=== PATIENT | male | born 1975 | race Caucasian/White ===

== ENCOUNTER 2024-07-02 09:30 | Day surgery (SDC) | payer BC, SELFPAY ==
[2024-07-02 16:19] VITALS: BMI 29.9
[2024-07-05] VITALS (16 sets, daily range): BP systolic 130–161; BP diastolic 70–97; PULSE 62–81; RESP 16–18; TEMP 36.8; O2SAT 92–99; BMI 30.8
[2024-07-05 11:56] LABS: Basophils Percent Auto 0.6 % (0.2-1.2); Eosinophils Absolute Auto 0.1 K/mm3 (0-0.3); Eosinophils Percent Auto 2.2 % (0-4.4); Hematocrit 45.2 % (42.0-52.0); Hemoglobin 15.4 g/dL (14.0-18.0); Immature Granulocyte Absolute 0.01 K/mm3 (0.00-0.031); Immature Granulocyte Percent A 0.2 % (0-0.5); Lymphocytes Absolute Auto 1.76 K/mm3 (0.9-3.2); Lymphocytes Percent Auto 27.8 % (18.3-44.2); Mean Corpuscular HGB Conc 34.1 g/dl (32-36); Mean Corpuscular Hemoglobin 33.5 pg (26-34); Mean Corpuscular Volume 98.3 fl (80-100); Mean Platelet Volume 10.1 fl (7.4-10.4); Monocytes Absolute Auto 0.5 K/mm3 (0.1-0.6); Monocytes Percent Auto 8.5 % (2.6-8.5); Neutrophils Absolute Auto 3.8 K/mm3 (1.3-6.7); Neutrophils Percent Auto 60.7 % (45.5-73.1); Platelet Count Result 175 k/mm3 (150-375); White Blood Count 6.3 K/mm3 (4.5-10.0)
[2024-07-05 12:08] LABS: Anion Gap 5 mmol/L (4-12); Blood Urea Nitrogen 18 mg/dL (9-20); Calcium 9.3 mg/dL (8.4-10.2); Carbon Dioxide 25 mmol/L (22-30); Chloride 109 mmol/L (98-107); Estimated CRCL calculation 140 ml/min; Estimated Glomerular Filt Rate > 60; Glucose 127 mg/dL (65-110); Potassium 4.7 mmol/L (3.4-5.0); Sodium 139 mmol/L (137-145)
--- NOTE | 2024-07-05 14:15 | WPDHPUPDATE1 ---
History and Physical Update Update Date/Time: 07/05/24 14:15 History and Physical has been reviewed, including an updated exam of the patient. There are NO changes in the patient's condition. Risks, benefits, and alternatives have been discussed and questions answered. Patient agrees to proceed with procedure.
--- NOTE | 2024-07-05 14:16 | P.SEDATION_ITS ---
Moderate Sedation Note-Pt Data Patient Data Allergies Allergy/AdvReac Type Severity Reaction Status Date / Time No Known Allergies Allergy Verified 07/05/24 11:41 Home Medications Medication Instructions Recorded Confirmed Type aspirin 81 mg tablet,delayed 81 mg PO DAILY 07/02/24 07/02/24 History release evolocumab 140 mg/mL subcutaneous 140 mg subcut [id number] 07/02/24 07/02/24 History pen injector (Fletcher Koch) rosuvastatin 40 mg tablet 40 mg PO DAILY 07/02/24 07/02/24 History valsartan 160 mg tablet 160 mg PO BID 07/02/24 07/02/24 History Sedation/Anesthesia: No previous sedation/anesthesia problems (including family history). [facility] Social History Social History Smoking status: Never smoker Second hand tobacco smoke exposure: No Alcohol intake: current Drinks per week: 2 Alcohol use details: H[employer] Substance use: never Substance use type: does not use Living arrangements: with family Spiritual care concerns: No Mod Sed Physical Exam Physical Exam Pre Procedural Exam: Normal: Lungs, Heart Rate and Heart Rhythm Hours since solid foods: 12 Hours since liquid intake: 12 Mallampati Classification: class II Internal Medicine - PN: Obj Da Vital Signs Vital Signs: Vital Signs - 24 hr 07/05/24 11:43 Temperature 36.8 C Pulse Rate 75 Respiratory Rate 16 Blood Pressure 149/97 H Pulse Oximetry 99 Oxygen Delivery Room Air Labs 07/05/24 11:41 07/05/24 11:41 Labs: Laboratory Results - last 24 hr 07/05/24 11:41 WBC 6.3 RBC 4.60 Hgb 15.4 Hct 45.2 MCV 98.3 MCH 33.5 MCHC 34.1 RDW 12.0 Plt Count 175 MPV 10.1 Immature Gran % (Auto) 0.2 Neut % (Auto) 60.7 Lymph % (Auto) 27.8 [place] % (Auto) 8.5 Eos % (Auto) 2.2 Baso % (Auto) 0.6 Lymph # (Auto) 1.76 [place] # (Auto) 0.5 Eos # (Auto) 0.1 Baso # (Auto) 0.0 Abs Immat Gran (auto) 0.01 Absolute Neuts (auto) 3.8 Absolute Nucleated RBC 0.000 Nucleated RBC % 0.0 Sodium 139 Potassium 4.7 Chloride 109 H Carbon Dioxide 25 Anion Gap 5 BUN 18 Creatinine 0.70 Estim Creat Clear Calc 140 Estimated GFR > 60 Glucose 127 H Calcium 9.3 ASA Classification/Sedation ASA Classification/Sedation ASA Class: III Emergent: No Risks: Risks, benefits and alternatives explained and patient/family accepted plan for sedation. Patient re-evaluated immediately prior to sedation.
--- NOTE | 2024-07-05 14:17 | P.PCNCC_ITS ---
Cardiac Cath Procedure Note Date of procedure:: 07/05/24 Performing physician:: CATHETERIZATION LABORATORY REPORT Procedure Date: 07/05/2024 Referring Physician: Dr. Noe Anesthesia: Versed and Fentanyl were ordered and given in my presence at 1353, procedure ended at 1411. Supervision of nurse, Mikie Harris monitored moderate sedation with 2mg Versed and 100mcg Fentanyl was provided for 18 minutes. Pre-op Diagnosis: Positive stress test Post-op Diagnosis: Multivessel CAD Procedure(s): Left heart catheterization with coronary angiography Access Site: Right radial artery Brief History and Clinical Indications: All risks, benefits and alternatives to left heart catheterization with or without percutaneous coronary intervention was discussed at length with the patient. Risk of complications including but not limited to bleeding, infection, arrhythmia, stroke, worsening kidney function, blood loss, groin hematoma, limb loss, emergency coronary artery bypass grafting, and even were discussed with the patient and all questions were answered. The patient understood and wished to proceed. Time out called, patient name, date of , medical record number, allergies, procedure performed, identify Senior Copywriter, patient and staff member concurred with accurate data, procedure carried on. Findings: LEFT HEART CATHETERIZATION FINDINGS: 1. Left main: The left main coronary artery is widely patent without any significant obstructive disease. 2. Left anterior descending: The LAD gives off 4 diagonal branches. The diagonal branches of luminal irregularities. The mid LAD has 2 areas of 70-90% stenosis. 3. Left circumflex: The left circumflex artery is a large codominant vessel. There is a 90% stenosis in its proximal segment. In its distal segment there is a chronic total occlusion with bridging collaterals filling the remainder of left PDA. His 4. Right coronary artery: The RCA is a large codominant vessel. In its mid body there is a 99% stenosis. The right posterior lateral branches has luminal irregularities. The right PDA has mild 20-30% stenosis. 5. Left ventricle: A. End-diastolic pressure 21 mmHg. B. LV gram deferred. C. No significant gradient across aortic valve on catheter pullback. 6. Opening AO pressure 139/88 and closing AO pressure 119/77 Description of Procedure: Informed consent signed and placed in the chart. Patient transferred to laboratory development technician room. Prepped and draped in usual sterile fashion. 2% lidocaine injected subcutaneously in right wrist area. 22-gauge venipuncture catheter used to access the right radial artery with the Seldinger technique. 6-FR slender sheath placed in right radial artery. Nitroglycerin 200mcg, Verapamil 2.5mg, and Heparin 5000U was given intraarterial through the sheath. J wire advanced under fluoroscopy 5F TIG diagnostic catheter engaged Left Main Coronary Artery. 5F TIG diagnostic catheter engaged Right Coronary Artery Multiple orthogonal angiogram obtained and reviewed 5F Pigtail diagnostic catheter crossed aortic valve to obtain LVEDP, LV angiogram deferred. Hemostasis was achieved by application of TR band. Assessment: Severe multivessel CAD Post Operative Condition: Stable No significant blood loss Disposition: Home Plan: The patient will be monitored in the recovery area. Continue aggressive medical therapy and risk factor modification. Outpatient referral for CTS consult [facility]
== END 2024-07-05 18:15 | disposition home or self-care (01) ==
PROVIDERS: PCP Internal Medicine; Visit Provider Internal Medicine
PROC: 4A023N7 Measurement of Cardiac Sampling and Pressure, Left Heart, Percutaneous Approach (ICD-10-PCS; CPT 93452; principal; 2024-07-05 12:30)
DX: I25.10 Atherosclerotic heart disease of native coronary artery without angina pectoris (principal); E78.2 Mixed hyperlipidemia; I10 Essential (primary) hypertension; K21.9 Gastro-esophageal reflux disease without esophagitis; Z79.82 Long term (current) use of aspirin; Z79.85 Long-term (current) use of injectable non-insulin antidiabetic drugs; Z87.891 Personal history of nicotine dependence; Z80.0 Family history of malignant neoplasm of digestive organs; Z82.49 Family history of ischemic heart disease and other diseases of the circulatory system
CPT/HCPCS: 36415; 80048; 85025; 93458; C1769; C1887; C1894; J1644; J2003; J2250; J2305; J3010; J7040